=== PATIENT | male | born 1975 | race Two or more races ===

== ENCOUNTER 2023-02-27 09:32 | Emergency (ER) | payer MEDICAID ==
[~2023-02-27] VITALS: Ht 180.3 cm; Wt 89.0 kg
[2023-02-27] MEDS ORDERED: LORazepam 2MG/ML-1ML VIAL IV ONE ×2 (09:45→14:00)
[2023-02-27] MEDS ORDERED: SODIUM CHLORIDE 0.9% 1,000 ML IV ONE ×2 (09:45→14:00)
[2023-02-27 10:30] LABS: Basophils # (auto) 0.1 10 ^3/uL (0-0.2); Eosinophils # (auto) 0.2 10 ^3/uL (0-0.8); Monocytes # (auto) 0.6 10 ^3/uL (0-1.3); Monocytes % (auto) 8.6 % (0.0-12.0); Neutrophils # (auto) 5.1 10 ^3/uL (1.6-8.6); Nucleated Red Blood Cells % 0.1 %
[2023-02-27 10:32] LABS: Basophils % (auto) 1.4 % (0.0-2.0); Eosinophils % (auto) 2.4 % (0.0-7.0); Hematocrit 51.7 % (41.0-53.0); Hemoglobin 17.8 g/dL (13.5-17.5); Lymphocytes # (auto) 1.2 10 ^3/uL (0.4-5.4); Lymphocytes % (auto) 17.2 % (10.0-50.0); Mean Corpuscular Hemoglobin 31.4 pg (28.0-32.0); Mean Corpuscular Hgb Conc. 34.5 g/dL (32.0-36.0); Mean Corpuscular Volume 91.1 fL (80.0-100.0); Neutrophils % (auto) 70.4 % (37.0-80.0); Red Blood Cells 5.68 10^6/uL (4.5-5.90); White Blood Cell 7.2 10^3/uL (4.4-10.8)
[2023-02-27 10:38] LABS: Chloride 101 mmol/L (98-107); Potassium 3.6 mmol/L (3.5-5.1); Sodium 135 mmol/L (136-145)
[2023-02-27 10:39] LABS: Anion Gap 8 (5-15); Calcium 8.7 mg/dL (8.5-10.1); Carbon Dioxide 26 mmol/L (20-30)
[2023-02-27 10:44] LABS: Blood Alcohol 227.2 mg/dL (<10); Glucose 113 mg/dL (74-106)
[2023-02-27 11:00] LABS: BUN/Creatinine Ratio 6.4 (10.0-20.0); Blood Urea Nitrogen < 5 mg/dL (9-23)
[2023-02-27 11:12] LABS: Magnesium 1.6 mg/dL (1.6-2.6)
[2023-02-27 11:41] LABS: Amphetamine Screen, Urine Neg (NEGATIVE); Barbiturate Scree,Urine Neg (NEGATIVE); Benzodiazephine Screen, Urine Neg (NEGATIVE); Cocaine Screen, Urine Neg (NEGATIVE); Opiate Scree,Urine Neg (NEGATIVE)
[2023-02-27 11:42] LABS: Cannabinoid Screen, Urine Neg (NEGATIVE); Phencyclidine Screen, Urine Neg (NEGATIVE)
[2023-02-27] MEDS ORDERED: CHL10C PO (12:25)
[2023-02-27 13:46] VITALS: BP 145/85
[2023-02-27 16:00] VITALS: PULSE 115; RESP 18; O2SAT 98
== END 2023-02-27 17:00 | disposition left against medical advice (07) ==
LOC: ER 09:32
DX: F10.139 Alcohol abuse with withdrawal, unspecified (principal); Z79.899 Other long term (current) drug therapy; Y90.0 Blood alcohol level of less than 20 mg/100 ml
CPT/HCPCS: 36415; 80048; 80307; 80320; 83735; 85025; 96361; 96374; 96376; 99284; J2060; J7030

== ENCOUNTER 2023-03-10 14:39 | Emergency (ER) | payer MEDICAID ==
[~2023-03-10] VITALS: Ht 180.3 cm; Wt 89.5 kg
[~2023-03-10 14:39] MED LIST: CHL10C PO
[2023-03-10 15:31] VITALS: BP 141/78; PULSE 108; RESP 8; TEMP 98.2; O2SAT 97
[2023-03-10] MEDS ORDERED: CHLO25CA9 PO (16:08)
== END 2023-03-10 16:17 | disposition home or self-care (01) ==
LOC: ER 14:39
DX: F10.20 Alcohol dependence, uncomplicated (principal); Z76.0 Encounter for issue of repeat prescription; Z79.899 Other long term (current) drug therapy; Y90.9 Presence of alcohol in blood, level not specified

== ENCOUNTER 2023-04-05 09:48 | Emergency (ER) | payer MEDICAID ==
[~2023-04-05] VITALS: Ht 180.3 cm; Wt 90.5 kg
[~2023-04-05 09:48] MED LIST changes: +CHLO25CA9 PO
[2023-04-05 10:35] LABS: Basophils # (auto) 0.1 10 ^3/uL (0-0.2); Eosinophils # (auto) 0.5 10 ^3/uL (0-0.8); Hemoglobin 17.8 g/dL (13.5-17.5); Mean Corpuscular Volume 94.1 fL (80.0-100.0); Monocytes # (auto) 0.6 10 ^3/uL (0-1.3); Neutrophils # (auto) 4.4 10 ^3/uL (1.6-8.6); Red Cell Distribution Width 14.6 % (11.8-14.3); White Blood Cell 6.4 10^3/uL (4.4-10.8)
[2023-04-05 10:36] LABS: Alanine Aminotransferase 36 U/L (7-40); Albumin 4.5 g/dL (3.2-4.8); Alkaline Phosphatase 71 U/L (46-116); Anion Gap 9 (5-15); Aspartate Aminotransferase 28 U/L (13-40); BUN/Creatinine Ratio 5.2 (10.0-20.0); Blood Urea Nitrogen 5 mg/dL (9-23); Calcium 9.2 mg/dL (8.5-10.1); Carbon Dioxide 24 mmol/L (20-30); Chloride 103 mmol/L (98-107); Glucose 81 mg/dL (74-106); Sodium 136 mmol/L (136-145); Total Protein 7.1 g/dL (5.7-8.2)
[2023-04-05 10:38] LABS: Basophils % (auto) 0.9 % (0.0-2.0); Eosinophils % (auto) 7.2 % (0.0-7.0); Hematocrit 52.5 % (41.0-53.0); Lymphocytes # (auto) 0.9 10 ^3/uL (0.4-5.4); Lymphocytes % (auto) 14.1 % (10.0-50.0); Monocytes % (auto) 8.7 % (0.0-12.0); Neutrophils % (auto) 69.1 % (37.0-80.0); Nucleated Red Blood Cells % 0.1 %; Red Blood Cells 5.58 10^6/uL (4.5-5.90)
[2023-04-05 10:41] LABS: Urine Bacteria NONE SEEN /hpf (None Seen); Urine Blood Negative /uL (Negative); Urine Clarity Clear (Clear); Urine Color Colorless (Yellow); Urine Protein, UAD Negative (Negative); Urine Specific Gravity 1.002 (1.001-1.035); Urine Urobilinogen Normal (Negative); Urine WBC <1 /hpf (0 - 3)
[2023-04-05] MEDS ORDERED: CHLO25CA9 PO (11:22)
[2023-04-05 11:35] VITALS: BP 146/86; PULSE 73; RESP 16; TEMP 98.1; O2SAT 97
== END 2023-04-05 11:40 | disposition home or self-care (01) ==
LOC: ER 09:48
DX: F10.10 Alcohol abuse, uncomplicated (principal); Z71.41 Alcohol abuse counseling and surveillance of alcoholic; Z79.899 Other long term (current) drug therapy; Y90.9 Presence of alcohol in blood, level not specified
CPT/HCPCS: 36415; 80053; 81001; 85025

== ENCOUNTER 2023-10-21 09:26 | Emergency (ER) | payer MEDICAID ==
[~2023-10-21] VITALS: Ht 180.3 cm; Wt 84.0 kg
[~2023-10-21 09:26] MED LIST changes: -CHL10C PO
[2023-10-21 09:28] VITALS: BP 151/97; RESP 18; O2SAT 97
[2023-10-21 09:49] LABS: Urine Bacteria None Seen /hpf (None Seen); Urine WBC None Seen /hpf (0 - 3)
[2023-10-21 10:02] LABS: Eosinophils # (auto) 0.1 10 ^3/uL (0-0.8); Red Blood Cells 6.15 10^6/uL (4.5-5.90); White Blood Cell 7.2 10^3/uL (4.4-10.8)
[2023-10-21 10:04] LABS: Basophils # (auto) 0.1 10 ^3/uL (0-0.2); Basophils % (auto) 1.3 % (0.0-2.0); Eosinophils % (auto) 0.7 % (0.0-7.0); Hematocrit 53.8 % (41.0-53.0); Hemoglobin 18.7 g/dL (13.5-17.5); Lymphocytes # (auto) 1.6 10 ^3/uL (0.4-5.4); Lymphocytes % (auto) 21.8 % (10.0-50.0); Mean Corpuscular Hemoglobin 30.5 pg (28.0-32.0); Mean Corpuscular Hgb Conc. 34.9 g/dL (32.0-36.0); Mean Corpuscular Volume 87.5 fL (80.0-100.0); Monocytes # (auto) 0.4 10 ^3/uL (0-1.3); Monocytes % (auto) 5.5 % (0.0-12.0); Neutrophils # (auto) 5.1 10 ^3/uL (1.6-8.6); Neutrophils % (auto) 70.7 % (37.0-80.0); Nucleated Red Blood Cells % 0.2 %; Platelet Count (auto) 299 10^3/uL (140-450); Red Cell Distribution Width 13.9 % (11.8-14.3)
[2023-10-21 10:05] LABS: Urine Blood Negative /uL (Negative); Urine Clarity Clear (Clear); Urine Color Colorless (Yellow); Urine Protein, UAD Negative (Negative); Urine Specific Gravity 1.003 (1.001-1.035); Urine Urobilinogen Normal (Negative)
[2023-10-21 10:14] LABS: Alanine Aminotransferase 72 U/L (7-40); Albumin 4.5 g/dL (3.2-4.8); Alkaline Phosphatase 72 U/L (46-116); Anion Gap 14 (5-15); Aspartate Aminotransferase 45 U/L (13-40); Bilirubin, Total 0.6 mg/dL (0.2-1.0); Carbon Dioxide 23 mmol/L (20-30); Chloride 104 mmol/L (98-107); Glucose 100 mg/dL (74-106); Sodium 141 mmol/L (136-145); Total Protein 6.9 g/dL (5.7-8.2)
[2023-10-21 10:18] LABS: INR 1.12 (0.9-1.15); Partial Thromboplastin Time 26.6 SEC (24.5-34.5); Prothrombin Time 11.8 sec (9.3-11.8)
[2023-10-21 10:22] LABS: BUN/Creatinine Ratio 4.7 (10.0-20.0); Blood Urea Nitrogen < 5 mg/dL (9-23)
[2023-10-21 11:10] VITALS: PULSE 96
[2023-10-21] MEDS ORDERED: CHL10C PO (12:37)
[2023-10-21] MEDS ORDERED: THIA100T10 GT (12:37)
== END 2023-10-21 12:38 | disposition home or self-care (01) ==
LOC: ER 09:26 → EDBD 09:26 → ER 12:38
DX: F10.10 Alcohol abuse, uncomplicated (principal); Z79.899 Other long term (current) drug therapy
CPT/HCPCS: 36415; 80053; 80320; 81001; 83735; 83880; 84484; 85025; 85379; 85610; 85730; 93005

== ENCOUNTER 2023-10-23 07:39 | Inpatient (IN) | payer MEDICAID ==
[~2023-10-23] VITALS: Ht 180.3 cm; Wt 85.0 kg
[~2023-10-23 07:39] MED LIST changes: +CHL10C PO; +THIA100T10 GT
[2023-10-23] MEDS: SODIUM CHLORIDE 0.9% 1,000 ML IVB ONE (08:00)
[2023-10-23] MEDS: THIAMINE 100mg/ml INJ (200mg/2ml VIAL) IV ONE (08:00)
[2023-10-23] MEDS: LORazepam 2MG/ML-1ML VIAL IV ONE ×4 (08:00→13:21)
[2023-10-23 08:31] LABS: Basophils # (auto) 0.1 10 ^3/uL (0-0.2); Eosinophils # (auto) 0 10 ^3/uL (0-0.8); Eosinophils % (auto) 0.3 % (0.0-7.0); Hematocrit 49.4 % (41.0-53.0); Hemoglobin 17.3 g/dL (13.5-17.5); Lymphocytes # (auto) 1.9 10 ^3/uL (0.4-5.4); Lymphocytes % (auto) 23.8 % (10.0-50.0); Mean Corpuscular Hemoglobin 30.9 pg (28.0-32.0); Mean Corpuscular Hgb Conc. 35.1 g/dL (32.0-36.0); Monocytes # (auto) 0.3 10 ^3/uL (0-1.3); Monocytes % (auto) 4.3 % (0.0-12.0); Neutrophils # (auto) 5.7 10 ^3/uL (1.6-8.6); Neutrophils % (auto) 70.6 % (37.0-80.0); Nucleated Red Blood Cells % 0.1 %; Platelet Count (auto) 260 10^3/uL (140-450); Red Blood Cells 5.61 10^6/uL (4.5-5.90); Red Cell Distribution Width 14.3 % (11.8-14.3)
[2023-10-23 08:45] LABS: Alanine Aminotransferase 62 U/L (7-40); Albumin 4.4 g/dL (3.2-4.8); Alkaline Phosphatase 67 U/L (46-116); Anion Gap 14 (5-15); Aspartate Aminotransferase 44 U/L (13-40); BUN/Creatinine Ratio 6.1 (10.0-20.0); Blood Urea Nitrogen 7 mg/dL (9-23); Calcium 8.5 mg/dL (8.7-10.4); Carbon Dioxide 23 mmol/L (20-30); Chloride 100 mmol/L (98-107); Glucose 155 mg/dL (74-106); Potassium 3.2 mmol/L (3.5-5.1); Sodium 137 mmol/L (136-145)
[2023-10-23 08:46] LABS: Bilirubin, Total 0.8 mg/dL (0.2-1.0); Total Protein 6.7 g/dL (5.7-8.2)
[2023-10-23 08:53] LABS: Blood Alcohol 331.6 mg/dL (<10)
[2023-10-23 08:55] VITALS: PULSE 107; RESP 11; O2SAT 96
[2023-10-23] MEDS: POTASSIUM EFFERVESENT TAB 25 MEQ PO ONE ×2 (09:15→13:26)
[2023-10-23] MEDS: SODIUM CHLORIDE 0.9% 1,000 ML IV ONE (09:18)
[2023-10-23] MEDS ORDERED: MORPHINE SULFATE INJ 2 MG/ml SYRG IV PRN (13:00)
[2023-10-23] MEDS ORDERED: DOCUSATE SOD 100 MG CAP PO PRN (13:00)
[2023-10-23] MEDS ORDERED: ONDANSETRON HCL 4 MG/2 ML VIAL IV PRN (13:00)
[2023-10-23] MEDS ORDERED: TEMAZEPAM 15 MG CAP PO PRN (13:00)
[2023-10-23] MEDS ORDERED: NITROGLYCERIN 0.4 MG SL TAB SL PRN (13:00)
[2023-10-23] MEDS: SODIUM CHLORIDE 0.9% 1,000 ML IV SCH (13:21)
[2023-10-23] MEDS: chlordiazePOXIDE HCL 25 MG CAP PO SCH (13:25)
[2023-10-23] MEDS: LORazepam 2MG/ML-1ML VIAL IV PRN ×2 (16:29→20:21)
[2023-10-23 18:04] VITALS: BP 148/87; PULSE 106; RESP 18; TEMP 97.6; O2SAT 96
[2023-10-23] MEDS: FOLIC ACID 1 MG, MAGNESIUM SULF SDV 50% 8 MEQ, MULTIPLE VITAMIN 10 ML, THIAMINE INJ 100... INJ SCH (18:27)
[2023-10-24] MEDS ORDERED: chlordiazePOXIDE HCL 25 MG CAP PO SCH (10:00)
[2023-10-25] MEDS ORDERED: chlordiazePOXIDE HCL 25 MG CAP PO SCH (10:00)
[2023-10-26] MEDS ORDERED: chlordiazePOXIDE HCL 25 MG CAP PO SCH (07:00)
== END 2023-10-23 23:30 | disposition left against medical advice (07) | DRG 812 ==
LOC: ER 07:39 → TELE 12:59
PROVIDERS: ADMIT Nurse Practitioner Family; ATTEND Nurse Practitioner Family
DX: T51.8X1A Toxic effect of other alcohols, accidental (unintentional), initial encounter (principal); E86.0 Dehydration; R00.2 Palpitations; I45.6 Pre-excitation syndrome; F10.129 Alcohol abuse with intoxication, unspecified; F32.A Depression, unspecified; R07.9 Chest pain, unspecified; F10.139 Alcohol abuse with withdrawal, unspecified; Y90.8 Blood alcohol level of 240 mg/100 ml or more; R74.01 Elevation of levels of liver transaminase levels; R73.9 Hyperglycemia, unspecified; Y92.098 Other place in other non-institutional residence as the place of occurrence of the external cause
CPT/HCPCS: 36415; 80053; 80320; 82607; 83735; 84100; 84484; 85025; 93005; 96365; 96375; 99291; G0378

== ENCOUNTER 2024-08-27 00:14 | Emergency (ER) | payer MEDICAID ==
[~2024-08-27] VITALS: Ht 180.3 cm; Wt 89.0 kg
[2024-08-27 00:20] VITALS: BP 171/98; PULSE 128; RESP 17; TEMP 98.3; O2SAT 99
[2024-08-27] MEDS ORDERED: SODIUM CHLORIDE 0.9% 1,000 ML IV ONE (00:30)
[2024-08-27] MEDS ORDERED: ONDANSETRON HCL 4 MG/2 ML VIAL IV ONE (00:30)
--- NOTE | 2024-08-27 01:21 | ED.PDOC ---
Altered Mental Status HPI Comments 49-year-old male brought in by EMS. EMS was called because patient was acting erratic at home, patient does report to drinking EtOH, states he also took kraton, also reports steroid use. Upon initial EMS arrival patient was A&O 2/3 upon arrival to the hospital patient is A&O four. Patient denies any pain or discomforts at this time. Chief Complaint: ETOH Time Seen by MD: 00:29 Primary Care Provider: NONE @ THIS TIME Reviewed Notes: Nurses Notes Allergies: Coded Allergies: NO KNOWN ALLERGIES (Unverified , 05/13/15) Home Meds Active Scripts Thiamine Hcl (VITAMIN B-1) 100 Mg Tb, 100 MG GT DAILY for 90 Days, #90 TAB Prov:TREASURE DIAZ MD 10/21/23 Chlordiazepoxide Hcl (Ni-1) (I (Librium) 10 Mg Cap, 10 MG PO DAILY PRN for 10 Days, #20 CAP Prov:TREASURE IDAZ MD 10/21/23 Chlordiazepoxide Hcl (Ni-1) (I (Chlordiazepoxide Hcl) 25 Mg Cap, 25 MG PO TID PRN for 5 Days, #15 CAP Prov:JUDE PRATHER MD 04/05/23 Information Source: Patient Mode of Arrival: EMS Severity: Moderate Past Medical History PAST MEDICAL HISTORY: Denies Surgical History: Denies all surgeries Family History Family History: No family hx of Cancer, No family hx of DM, No family hx of Heart nitza Social History Smoker: Non-Smoker Alcohol: Heavy Drugs: Denies Drug Use Lives In: Home Unable to Obtain due to: Altered Mental Status Physical Exam General Appearance: No Apparent Distress, Normal HEENT: Normal ENT Inspection, Pharynx Normal, TMs Normal Neck: Full Range of Motion, Non-Tender, Normal, Normal Inspection Respiratory: Chest Non-Tender, Lungs Clear, No Accessory Muscle Use, No Respiratory Distress, Normal Breath Sounds Cardiovascular: No Edema, No JVD, No Murmur, No Gallop, Normal Peripheral Pulses, Regular Rate/Rhythm Breast Exam: Deferred Gastrointestinal: No Organomegaly, Non Tender, No Pulsatile Mass, Normal Bowel Sounds, Soft Genitalia: Deferred Pelvic: Deferred Rectal: Deferred Extremities: No calf tenderness, Normal capillary refill, Normal inspection, Normal range of motion, Non-tender, No pedal edema Musculoskeletal : Apperance: Normal Neurologic: NOT DONE Cerebellar Function: NOT DONE Reflexes: NOT DONE Skin: Dry, Normal Color, Warm Lymphatic: No Adenopathy Was a procedure done? Was a procedure done?: No Differential Diagnosis (ALOC) Differential Diagnosis: N/A X-Ray, Labs, Meds, VS Vital Signs Date Time Temp Pulse Resp B/P (MAP) Pulse Ox O2 Delivery O2 Flow Rate FiO2 08/27/24 00:20 98.3 128 17 171/98 (122) 99 98.3 X-Ray, Labs, Meds, VS Comment Patient eloped, witnessed walking out emergency department. Patient says IV and placed, [facility] called. Time of 1ST Reevaluation: 01:21 Reevaluation 1ST: Unchanged Patient Education/Counseling: Diagnosis, Treatment Family Education/Counseling: Diagnosis SEPSIS Sepsis Screen Date sepsis recognized/suspect: Aug 27, 2024 Time Sepsis recognized/suspect: 0020 Recent Procedure: No On Antibiotic Therapy: No Respiratory Rate >20: No Heart Rate >90: Yes Temp<36 C (96.8 F) or >38.3 C: No SBP <90 or MAP <65 mmHG: No New Acute Mental Status Change: No Is the patient on CPAP, BIPAP,: No Physician Orders Sodium Chloride 0.9% (08/27/24 00:30) Vital Signs Date Time Temp Pulse Resp B/P (MAP) Pulse Ox O2 Delivery O2 Flow Rate FiO2 08/27/24 00:20 98.3 128 17 171/98 (122) 99 98.3 Departure 1 Departure Time of Disposition: 01:20 Impression: Primary Impression: Chronic alcohol abuse Disposition: 07 LEFT AWOL/ELOPED Condition: Stable Critical Care Note Critical Care Time?: No Stability Stability form required: No Heart Score Heart Score: Heart Score Response (Comments) Value History N/A 0 EKG N/A 0 Age N/A 0 Risk Factors N/A 0 Troponin N/A 0 Total [address] Aug 27, 2024 01:21
== END 2024-08-27 00:55 | disposition left against medical advice (07) ==
LOC: ER 00:14 → EDBD 00:14 → ER 00:55
DX: F10.10 Alcohol abuse, uncomplicated (principal); Z79.899 Other long term (current) drug therapy; Y90.9 Presence of alcohol in blood, level not specified